=== PATIENT | female | born 1985 | race Caucasian/White ===

== ENCOUNTER 2016-11-01 06:25 | Emergency (ER) | payer SELFPAY ==
[~2016-11-01] VITALS: Ht 165.1 cm; Wt 74.0 kg
[~2016-11-01 06:25] MED LIST: BUTA1CAP57 PO; OMEP40CA3 PO; ONDA4TAB7 PO; OXYC-302 PO; TOPI100T24 PO; TOPI50TA35 PO
[2016-11-01 06:32] VITALS: BP 131/87
[2016-11-01] MEDS ORDERED: ZOLM2.5T5 PO (06:40)
[2016-11-01] MEDS ORDERED: BUTA-177 PO (07:27)
== END 2016-11-01 07:58 | disposition home or self-care (01) ==
LOC: ED 07:30
DX: G43.909 Migraine, unspecified, not intractable, without status migrainosus (principal); I10 Essential (primary) hypertension
CPT/HCPCS: 99283